=== PATIENT | male | born 1955 | race Caucasian/White ===

== ENCOUNTER 2019-06-08 11:16 | Emergency (ER) | payer OTHER ==
[~2019-06-08] VITALS: Ht 165.1 cm; Wt 61.0 kg
[2019-06-08] MEDS ORDERED: MELOXICAM7.5 MG PO (12:14)
[2019-06-08] MEDS ORDERED: SILVADENE1 % EX (13:04)
[2019-06-08] MEDS ORDERED: TRAMADOL HYDROC50 MG PO (13:04)
[2019-06-08] MEDS ORDERED: KEFLEX500 M1 PO (13:04)
[2019-06-08 13:31] VITALS: BP 157/96
== END 2019-06-08 13:31 | disposition home or self-care (01) | DRG 935 ==
LOC: ED 11:16
PROC: 2W2KX4Z Dressing of Left Finger using Bandage (ICD-10-PCS; principal; 2019-06-08)
PROC: 2W2JX4Z Dressing of Right Finger using Bandage (ICD-10-PCS; 2019-06-08)
DX: T23.232A Burn of second degree of multiple left fingers (nail), not including thumb, initial encounter (principal); T23.231A Burn of second degree of multiple right fingers (nail), not including thumb, initial encounter; T31.0 Burns involving less than 10% of body surface; F17.210 Nicotine dependence, cigarettes, uncomplicated; X04.XXXA Exposure to ignition of highly flammable material, initial encounter; X05.XXXA Exposure to ignition or melting of nightwear, initial encounter; Y93.89 Activity, other specified; Y92.89 Other specified places as the place of occurrence of the external cause; Y99.0 Civilian activity done for income or pay

== ENCOUNTER 2019-12-10 | Emergency (ER) | payer OTHER, MEDICARE ==
[~2019-12-10] MED LIST: KEFLEX500 M1 PO; MELOXICAM7.5 MG PO; SILVADENE1 % EX; TRAMADOL HYDROC50 MG PO
[2019-12-10] MEDS ORDERED: VITAMIN C TR/R500 MG PO (11:42)
[2019-12-10] MEDS ORDERED: TYLENOL # 31 TAB PO (13:53)
== END 2019-12-10 14:21 | disposition home or self-care (01) | DRG 605 ==
DX: S20.211A Contusion of right front wall of thorax, initial encounter (principal); F17.210 Nicotine dependence, cigarettes, uncomplicated; X58.XXXA Exposure to other specified factors, initial encounter; Y93.89 Activity, other specified; Y92.89 Other specified places as the place of occurrence of the external cause; Y99.0 Civilian activity done for income or pay

== ENCOUNTER 2020-03-05 07:31 | Emergency (ER) | payer OTHER, MEDICARE ==
[~2020-03-05] VITALS: Ht 165.1 cm; Wt 60.9 kg
[~2020-03-05 07:31] MED LIST changes: +TYLENOL # 31 TAB PO; +VITAMIN C TR/R500 MG PO
[2020-03-05] MEDS ORDERED: FLEXERIL PO (08:12)
[2020-03-05] MEDS ORDERED: MEDDOSEPAK PO (08:12)
[2020-03-05 09:04] VITALS: BP 93/53
== END 2020-03-05 09:04 | disposition home or self-care (01) | DRG 552 ==
LOC: ED 07:31
DX: M54.5 Low back pain (principal); F17.200 Nicotine dependence, unspecified, uncomplicated

== ENCOUNTER 2022-07-12 10:47 | Emergency (ER) | payer OTHER, MEDICARE ==
[~2022-07-12] VITALS: Ht 165.1 cm; Wt 60.9 kg
[2022-07-12] VITALS (9 sets, daily range): BP systolic 101–141; BP diastolic 64–74
[~2022-07-12 10:47] MED LIST changes: +FLEXERIL PO; +MEDDOSEPAK PO; +SOMA350 MG PO
[2022-07-12] MEDS ORDERED: CEPHALEXIN500 M1 PO (13:50)
== END 2022-07-12 14:18 | disposition home or self-care (01) | DRG 605 ==
LOC: ED 10:47
DX: S61.012A Laceration without foreign body of left thumb without damage to nail, initial encounter (principal); W26.8XXA Contact with other sharp object(s), not elsewhere classified, initial encounter